=== PATIENT | male | born 1950 | race Caucasian/White ===

== ENCOUNTER → 2017-12-07 08:46 | Outpatient (CLI) | payer MEDICARE, OTHER, SELFPAY ==
[2017-12-07 10:05] LABS: AST(SGOT) 12 U/L (15-37); Alanine Aminotransfer ALT/SGPT 21 U/L (16-61); Albumin, Serum 3.9 g/dL (3.2-5.0); Alkaline Phosphatase 62 U/L (45-117); Bilirubin, Direct 0.19 mg/dL (0.00-0.30); Cholesterol 162 mg/dL (200); Globulin 3.2 g/dL (2.2-4.2); High Density Lipoprotein 39 mg/dL; Protein, Total 7.1 g/dL (6.4-8.2); Triglycerides 92 mg/dL; Very Low Density Lipoprotein 18 mg/dL (5-40)
[2017-12-07 10:07] LABS: Hemoglobin A1c 5.8 % (4.2-6.3)
== END ==
PROVIDERS: Family Provider Family Medicine; PCP Family Medicine; Visit Provider Nurse Practitioner Family
DX: E78.5 Hyperlipidemia, unspecified (principal); Z79.899 Other long term (current) drug therapy
CPT/HCPCS: 36415; 80061; 80076; 83036

== ENCOUNTER → 2018-01-19 09:29 | Outpatient (CLI) | payer MEDICARE, OTHER, SELFPAY ==
--- NOTE | 2018-01-19 09:32 | CT_ITS ---
STUDY: CT ABDOMEN AND PELVIS WITH AND WITHOUT CONTRAST REASON FOR EXAM: Male, 67 years old. Renal cysts. Left upper quadrant pain. Hematuria. RADIATION DOSAGE (If Supplied By Facility): CTDIvol = ( 26.33 ) mGy, DLP = ( 3586.39 ) mGycm TECHNIQUE: Transaxial images were obtained from the dome of the diaphragm to the symphysis pubis with oral contrast. 100mL ml of Isovue 300 contrast was administered. Sagittal and coronal images were reconstructed. Individualized dose optimization techniques were used for this CT. COMPARISON: None. FINDINGS: The visualized lung bases are unremarkable. The visualized portions of the heart are within normal limits. Normal liver. There is non-visualization of the gallbladder, which may be secondary to either contraction or a prior cholecystectomy. Normal spleen. Normal pancreas. Normal bilateral adrenal glands. Both kidneys show symmetric contrast-enhancement. Right kidney is simple cysts measuring as much as 8 cm. There is a 7 mm nonobstructing stone in the right upper pole. There is a 1 cm nonobstructing stone in the left lower pole. No hydronephrosis on either side. Normal collecting systems and ureters. Normal visualized stomach. Normal small intestine. Normal colon. The appendix is visualized and appears normal. There is diffuse atherosclerotic calcification of the abdominal aorta with elongation and tortuosity, but without a demonstrated aneurysm. There is ectasia of both iliac arteries. Normal inferior vena cava. Normal retroperitoneum. Normal urinary bladder. There is enlargement of the prostate gland. There is a small umbilical hernia containing fat. There are diffuse degenerative changes of the visualized lumbar spine. CT/CT Abd/Pelvis W/WO Contrast IMPRESSION: No definite acute abnormality. Bilateral nonobstructing renal stones. Prostate enlargement. Electronically Signed: Sudhakar Coleman MD at 14:14 EDT , Service support ,
[2018-01-19 09:56] LABS: CREATININE FINGERSTICK 1.1 mg/dL (0.70-1.30); EGFR FINGERSTICK > 60.0000 mL/min (>60)
== END ==
PROVIDERS: Family Provider Family Medicine; PCP Family Medicine; Visit Provider Nurse Practitioner Adult Health
DX: N28.1 Cyst of kidney, acquired (principal); N20.0 Calculus of kidney; N40.0 Benign prostatic hyperplasia without lower urinary tract symptoms; R10.12 Left upper quadrant pain
CPT/HCPCS: 74178; Q9967

== ENCOUNTER 2018-07-12 13:48 | Inpatient (IN) | payer MEDICARE, OTHER, SELFPAY ==
[2018-07-12] VITALS (7 sets, daily range): BP systolic 142–165; BP diastolic 79–88; PULSE 66–73; RESP 16–18; TEMP 36.6–38.2; O2SAT 93–98; BMI 71.4; BMI 30.1; BMI 30.7
--- NOTE | 2018-07-12 14:07 | CT_ITS ---
STUDY: CT ABDOMEN AND PELVIS WITHOUT CONTRAST REASON FOR EXAM: Male, 68 years old. Left flank pain, hematuria. History of kidney stones. Surgical history of cholecystectomy and CABG x4. RADIATION DOSAGE (If Supplied By Facility): CTDIvol = ( 14.36 ) mGy, DLP = ( 762.05 ) mGycm TECHNIQUE: Transaxial images were obtained from the dome of the diaphragm to the symphysis pubis without oral contrast, and without intravenous contrast. Sagittal and coronal images were reconstructed. Individualized dose optimization techniques were used for this CT. COMPARISON: CT abdomen and pelvis January 19, 2018. FINDINGS: Minor curvilinear subsegmental atelectasis noted in the posterior left lung base. The heart size is within normal limits. There are atherosclerotic calcifications of the coronary arteries and visualized distal descending thoracic aorta. Prior median sternotomy and CABG. There is decreased attenuation of the liver consistent with steatosis. The portal vein diameter is 15 mm. Normal gallbladder and extrahepatic biliary system. Normal spleen. Normal pancreas. Normal bilateral adrenal glands. There is a stable exophytic 3.55 x 4.4 x 3.35 cm cortical cyst at the upper pole of the right kidney. Exophytic 5.05 x 3.7 x 3.8 cm cortical cyst at the lower pole has decreased in size. Nonobstructing 7 mm stone again noted in the upper pole of the right kidney. There is a 5.5 mm nonobstructing stone in the left lower pole. 11 x 5 x 7.5 mm stone seen previously in the left lower pole is now in the proximal left ureter, causing mild to moderate hydroureteronephrosis and mild left perinephric congestive stranding. Normal visualized stomach. Normal small intestine. Normal colon. The appendix is visualized and appears normal. 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 There is 2.0 x 2.1 cm fusiform dilatation of the right common iliac artery and 1.9 x 1.75 cm fusiform ectasia on the left Normal inferior vena cava. Normal retroperitoneum. Normal urinary bladder. There is interval mild enlargement of the prostate gland. There are prostatic calcifications. There is a stable small umbilical hernia containing fat. There are diffuse degenerative changes of the visualized spine. Stable arthrodeses with anterior osseous bridging of the bilateral sacroiliac joints. There is benign subcentimeter cystic change in the superolateral head of the left femur. CT/Abdomen/Pelvis without Cont IMPRESSION: 1. Bilateral nephrolithiasis again noted. 11 mm stone previously seen in the lower pole left kidney is now in the proximal left ureter, causing mild to moderate hydroureteronephrosis. 2. Stable upper pole cortical cyst of the right kidney. A 5 cm lower pole cyst has decreased in size since January 2018. 3. 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 Prior median sternotomy and CABG. 4. Hepatic steatosis. 5. The bowel is unremarkable without signs of obstruction. The appendix is normal. 6. Coarse ossifications again seen in the central aspect of the mildly enlarged prostate gland.. 7. Stable small, fat-containing umbilical hernia. 8. Stable degenerative changes of the spine and sacroiliac joints. Electronically Signed: Konstantin Stark MD at 16:58 EST , Service support ,
--- NOTE | 2018-07-12 14:31 | ED.VISSUMM ---
- ER Visit Summary Date of Service: 07/12/18 Chief Complaint: Abdominal pain History of Present Illness: The patient is a 68 M presents to the emergency department with midepigastric abdominal pain into his left upper quadrant and left back. The patient states that he was recently in [place]. He states that he was drinking alcohol and overeating. He states on the second day, he had a sharp pain in his mid epigastric area that radiated to his back. He states he had some loose watery diarrhea and then since then has felt constipated. He states has felt like has been bloated. He states if he takes some ibuprofen, it seems to control the pain but then the pain will come back. He did have something similar like this a few months ago. He was evaluated by urology. He has CT scan which showed kidney stone within the kidney, but nothing within the tract. He has had prior CABG and cholecystectomy. He denies any history of diverticulitis. Physical Examination: Vital signs reviewed General: Well-nourished, well-developed Head: Normocephalic, atraumatic Eyes: Pupils equal and reactive, extraocular muscles intact Neck, supple, no lymphadenopathy Heart: Regular rate and rhythm Respiratory: No distress, clear bilaterally Abdomen: Soft, tender in the left upper quadrant without rebound or guarding, nondistended, no peritoneal signs Back: Nontender Extremities: Nontender, no edema, no cords Skin: Normal color no rash Neuro: Alert and oriented, no focal or lateralizing deficits Test Results: [] Emergency Department Course and Treatment: The patient has pain in his left upper quadrant and his left back. Was concern for diverticulitis versus obstructing kidney stone. IV was established. He declined analgesics. Patient was given IV fluids. He does have evidence of acute kidney injury with a creatinine of 2. Patient will undergo CT the abdomen pelvis. Disposition will be pending completion of this. He will be signed out to the oncoming physician. Treatment Plan: [] Disposition: Pending Impression: Acute left flank pain 2. Acute kidney injury This note was generated with [employer] dictation software. It may contain incorrect words, spelling, and punctuation that were not noted in review of the chart prior to signing ED Disposition - Plan for ED Patient: Chief Complaint: Flank Pain Referrals: Xavier Fernandez MD [Primary Care Provider] -
[2018-07-12] MEDS: 0.9% Normal Saline 1,000 ML 1000 ML IV (14:38)
[2018-07-12 14:43] LABS: Absolute Lymphocyte Count 1.36 X10^3/ul (0.83-4.51); Absolute Neutrophil Count 6.6 X10^3/uL (2.0-7.7); Basophil# 0.01 X10^3/uL; Basophil% 0.1 % (0-1); Eosinophil# 0.13 X10^3/uL; Eosinophils% 1.4 % (0-5); Hematocrit 41.6 % (40-54); Lymphocyte # 1.36 X10^3/ul (4.0); Lymphocyte % 14.9 % (19-41); Mean Corp Hgb Conc 33.7 g/gl (32-36); Mean Corpuscular Hgb 30.2 pg (27.0-32.0); Mean Corpuscular Volume 89.7 fL (80-94); Mean Platelet Vol. 11.2 fl (6.2-12.0); Monocyte# 0.95 X10^3/uL; Monocyte% 10.4 % (0-10); Neutrophil # 6.64 X10^3/uL (2.7-7.7); Platelet Count 142 K/mm3 (150-450); RBC Distribution Width CV 13.2 % (11.6-14.6); RBC Distribution Width SD 42.7 fl (35.1-43.9); Red Blood Count 4.64 M/mm3 (4.6-6.2); White Blood Count 9.1 K/mm3 (4.4-11.0)
[2018-07-12 14:44] LABS: POSITIVE COUNT NO; POSITIVE DIFFERENTIAL NO; POSITIVE MORPHOLOGY NO
[2018-07-12 14:54] LABS: AST(SGOT) 19 U/L (15-37); Alanine Aminotransfer ALT/SGPT 27 U/L (16-61); Albumin, Serum 3.5 g/dL (3.2-5.0); Alkaline Phosphatase 67 U/L (45-117); Anion Gap 7 (5-15); BUN 26 mg/dL (7-18); BUN/Creat Ratio 12.7 RATIO (10-20); Calcium,Total 8.4 mg/dL (8.5-10.1); Chloride 108 mmol/L (98-107); Creatinine, Serum 2.05 mg/dL (0.70-1.30); EST Glomerular Filtration Rate 35 mL/min (>60); Est Glom Filt Rate - Afr Amer 42 mL/min (>60); Estimated Creatinine Clearance 34.49 ml/min; Globulin 3.5 g/dL (2.2-4.2); Glucose 112 mg/dL (74-106); Lipase 118 U/L (73-393); Sodium Level 142 mmol/L (136-145)
[2018-07-12] MEDS: Ondansetron 4 MG/2 ML Vial IV (15:54)
[2018-07-12] MEDS: Morphine 4 MG/ML Syringe IV (15:54)
[2018-07-12 16:07] LABS: Bacteria 0 SEEN /hpf (None Seen); Mucous, Urine 0 SEEN /hpf (<or=2+); Squamous Epithelial Cells - UA 0 SEEN /hpf (0-5)
[2018-07-12 16:08] LABS: Color, Urine Yellow (Yellow); Glucose, Dipstick Normal (Normal); Ketone-Dipstick 5 mg/dl (Negative); Leukocyte Esterase-Dipstick 100 /ul (Negative); Nitrite-Dipstick Negative (Negative); Occult Blood-Urine 250 /ul (Negative); Protein-Dipstick 15 mg/dl (Negative); Specific Gravity, Urine 1.015 (1.002-1.030); Urine Bilirubin Dipstick Negative (Negative); Urine Clarity Clear (Clear); Urine Urobilinogen Normal (Normal)
[2018-07-12 16:13] LABS: Red Blood Cells-Urine 25-50 SEEN /hpf (0-5); White Blood Cells 0-5 SEEN /hpf (0-5)
[2018-07-12] MEDS: 0.9% Normal Saline 1,000 ML 75 ML IV (19:00)
[2018-07-12] MEDS: 0.9% NaCl Peripheral Flush Adult/Peds IV (20:22)
[2018-07-12] MEDS: Morphine 2 MG/ML Syringe IV (20:22)
--- NOTE | 2018-07-12 21:33 | HP.PCM_ITS ---
History of Present Illness Date of Admission: 07/12/18 Chief Complaint: left flank pain The patient is a 68 year old male presents to the hospital with a large 11m stone in the left renal pelvis, proximal ureter patient admitted for pain control, plan for surgery tomorrow Past Medical History Past Medical History (Chronic Problems): Chronic Problems (Last Updated 07/19/17 @ 19:33 by Yoana Ayala) Encounter for long-term (current) use of other medications (Chronic) S/P CABG x 4 (Chronic) Hyperlipidemia (Chronic) Hypertension (Chronic) Obstructive sleep apnea (Chronic) History of transient ischemic attack (Chronic) Bilateral carotid artery stenosis (Chronic) Atherosclerotic heart disease of [place] coronary artery without angina pectoris (Chronic) S/P CABG in 2012 with ALMEIDA to LAD, SVG to diagonal vessel, sequential SVG to RCA and posterior descending artery; Medical History: Medical History (Last Reviewed 07/12/18 @ 21:32 by Alvaro Langley MD) Encounter for long-term (current) use of other medications (Chronic) Z79.899 Hyperlipidemia (Chronic) E78.5 Hypertension (Chronic) I10 Obstructive sleep apnea (Chronic) G47.33 History of transient ischemic attack (Chronic) Z86.73 Bilateral carotid artery stenosis (Chronic) I65.23 Atherosclerotic heart disease of [place] coronary artery without angina pectoris (Chronic) I25.10 S/P CABG in 2012 with ALMEIDA to LAD, SVG to diagonal vessel, sequential SVG to RCA and posterior descending artery; Allergies lisinopril Adverse Reaction (Mild, Verified 07/12/18 13:49) cough Home Medications: Ambulatory Orders Medication Instructions Recorded amlodipine 5 mg tablet 5 mg PO QDAY 07/19/17 aspirin 81 mg tablet,delayed 81 mg PO QDAY 07/19/17 release losartan 100 mg tablet 50 mg PO BID 07/19/17 metoprolol tartrate 25 mg tablet 12.5 mg PO BID 07/19/17 Surgical History: Surgical History (Last Reviewed 07/12/18 @ 21:32 by Alvaro Langley MD) laser surgery eye (Resolved) torn retina left Esophageal dilatation (Resolved) K22.8 Hx of cholecystectomy (Resolved) Z90.49 S/P CABG x 4 (Chronic) Z95.1 Psychiatric History: No pertinent psych hx Lives: Spouse/ Significant Other Smoking Status: Never smoker Alcohol: None Drugs: None Review of Systems Constitutional: Denies: Chills, Fever, Weight Change HEENT: Denies: Head Aches, Sinus Congestion, Sinus Drainage Cardiovascular: Denies: Chest Pain, Palpitations Respiratory: Denies: Cough, Shortness of breath at rest, Sputum production Gastrointestinal: Denies: Abdominal Pain, Nausea, Vomiting Genitourinary: Reports: Hematuria, - - kidney stones. Denies: Dysuria Musculoskeletal: Denies: Joint Pain, Joint Tenderness Skin: Denies: Rash, Wounds Neurological: Denies: Numbness, Tingling, Focal weakness Psychiatric: Denies: Anxiety, Depression, Homicidal Ideations, Suicidal Ideations Hematologic/ Lymphatic: Denies: Easy Bruising, Easy Bleeding VTE Information - Inpt Only VTE Present on Admission: No - Physical Exam General: Alert, Oriented x3, Cooperative HEENT: Atraumatic, PERRLA, EOMI, Normocephalic Neck: Supple, No JVD, Negative Carotid Bruits Lungs: Clear to auscultation, Normal air movement Cardiovascular: Regular rate, No murmurs Abdomen: Bowel Sounds Present, Soft, Non Tender Extremities: No edema, Capillary Refill Less than 3 Seconds Skin: No rashes, No breakdown Musculoskeletal: No Tenderness to Palpation of Joints or Extremities Neurological: Cranial nerves II-XII grossly intact Psych/Mental Status: Normal Affect, Appropriate Vital Signs Temp Pulse Resp BP Pulse Ox 99.9 F H 70 18 152/83 H 96 07/12/18 18:21 07/12/18 20:15 07/12/18 20:15 07/12/18 18:21 07/12/18 20:15 Oxygen Delivery Method Room Air Weight: 97.2 kg Body Mass Index (BMI) 30.7 Laboratory Tests Past 24 Hrs 07/12/18 07/12/18 07/12/18 14:34 14:34 16:05 WBC 9.1 RBC 4.64 Hgb 14.0 Hct 41.6 MCV 89.7 MCH 30.2 MCHC 33.7 RDW 13.2 RDW Differential 42.7 Plt Count 142 L MPV 11.2 Immature Gran % (Auto) 0.200 Neut % (Auto) 73.0 H Lymph % (Auto) 14.9 L [place] % (Auto) 10.4 H Eos % (Auto) 1.4 Baso % (Auto) 0.1 Absolute Neuts (auto) 6.6 Absolute Lymphs (auto) 1.36 Total Counted Not Reportable Sodium 142 Potassium 4.0 Chloride 108 H Carbon Dioxide 27.0 Anion Gap 7 BUN 26 H Creatinine 2.05 H Estim Creat Clear Calc 34.49 Est GFR (MDRD) Af Amer 42 L Est GFR (MDRD) Non-Af 35 L BUN/Creatinine Ratio 12.7 Glucose 112 H Calcium 8.4 L Total Bilirubin 1.30 H AST 19 ALT 27 Alkaline Phosphatase 67 Total Protein 7.0 Albumin 3.5 Globulin 3.5 Albumin/Globulin Ratio 1.0 Lipase 118 Urine Color Yellow Urine Clarity Clear Urine pH 6.0 Ur Specific [place] 1.015 Urine Protein 15 H Urine Glucose (UA) Normal Urine Ketones 5 H Urine Occult Blood 250 H Urine Nitrite Negative Urine Bilirubin Negative Urine Urobilinogen Normal Ur Leukocyte Esterase 100 H Urine RBC 25-50 SEEN Urine WBC 0-5 SEEN Ur Squamous Epith Cells 0 SEEN Urine Bacteria 0 SEEN Urine Mucus 0 SEEN Assessment/Plan All Active Problems (Last Updated 11/29/17 @ 08:57 by Laury Lozano) laser surgery eye (Resolved) Esophageal dilatation (Resolved) Hx of cholecystectomy (Resolved) admit for kidney stone npo for surgery plan for cysto, left stent possible ureteroscopy laser stone.
[2018-07-12] MEDS: Metoprolol Tartrate 25 MG Tablet 12.5 MG PO (22:15)
[2018-07-12] MEDS: Losartan Potassium 50 MG Tablet PO (22:16)
[2018-07-12] MEDS: Acetaminophen 500 MG Tablet PO (22:16)
[2018-07-13] VITALS (13 sets, daily range): BP systolic 123–157; BP diastolic 69–86; PULSE 59–82; RESP 14–16; TEMP 37–37.6; O2SAT 91–97
[2018-07-13] MEDS: Morphine 2 MG/ML Syringe IV ×5 (00:09→16:42)
[2018-07-13] MEDS: 0.9% NaCl Peripheral Flush Adult/Peds IV (00:09)
[2018-07-13] MEDS: Acetaminophen 500 MG Tablet PO (03:18)
[2018-07-13] MEDS: 0.9% Normal Saline 1,000 ML 75 ML IV ×3 (05:57→21:23)
--- NOTE | 2018-07-13 06:00 | EKG12_ITS ---
Test Reason : PRE-OP Blood Pressure : / mmHG Vent. Rate : 059 BPM Atrial Rate : 059 BPM P-R Int : 176 ms QRS Dur : 088 ms QT Int : 448 ms P-R-T Axes : 016 -08 032 degrees QTc Int : 443 ms Sinus bradycardia Otherwise normal ECG When compared with ECG of 06-MAR-2013 09:09, Questionable change in QRS axis T wave inversion no longer evident in Anterior leads Confirmed by JAMIE CHOPRA, NAHEED ([id number]), assignment editor GINA HOLLY ([id number]) on 07/16/2018 2:55:16 PM Referred By: ADRIENNE Confirmed By:NAHEED AYALA MD
[2018-07-13] MEDS: amLODIPine 5 MG Tablet PO (09:50)
[2018-07-13] MEDS: Metoprolol Tartrate 25 MG Tablet 12.5 MG PO ×2 (09:52→21:21)
--- NOTE | 2018-07-13 17:42 | PCM.PN.BLA ---
Progress Note 68-year-old male presents with a obstructing kidney stone is running a low-grade fever plan to just place a stent today and could keep him on antibiotics if clinically stable we will send him home tomorrow with antibiotics.
--- NOTE | 2018-07-13 18:03 | PCM.OPRPT ---
Report of Operation Date of Procedure: 07/13/18 Pre-Operative Diagnosis: Fevers and chills, left obstructing kidney stone Post-Operative Diagnosis: Same Surgery/Procedure Performed:: Cystoscopy and left stent placement Description of Surgical Findings:: 68-year-old male taken back to the operating room at the smooth induction of general anesthesia he was placed supine on the table I then went into the urethra with a 21 Portuguese rigid cystourethroscope, he been prepped and draped in usual sterile fashion, cannulated the left ureteral orifice advanced a wire up into the kidney could see a stone in the medial ureter under x-ray I then advanced a stent 6 Portuguese by 26 cm stent once stent was in good position pulled on the wire and the stent drained urine we then sent the urine off for culture. At this point plan to admit the patient in the hospital for this fevers and chills an obstructing stone T with antibiotics. Plan to treat him in interval fashion with shockwave lithotripsy. Type of Anesthesia:: Local MAC Drains: stent left side - Admit VTE Documentation VTE Present on Admission: No VTE Mechan Device Prophylaxis: SCD's
[2018-07-13] MEDS: Losartan Potassium 50 MG Tablet PO (21:21)
--- NOTE | 2018-07-13 21:40 | NURSING ---
pt ambulating in hallway.
[2018-07-14 02:17] VITALS: BP 150/82; PULSE 81; RESP 18; TEMP 37; O2SAT 95
--- NOTE | 2018-07-14 02:20 | NURSING ---
spo2 85% on RA while sleeping. 2L NC applied sp02 95%.
[2018-07-14] MEDS: Acetaminophen 500 MG Tablet PO (04:15)
[2018-07-14] MEDS: Losartan Potassium 50 MG Tablet PO (07:53)
[2018-07-14 07:54] VITALS: PULSE 61
[2018-07-14] MEDS: Metoprolol Tartrate 25 MG Tablet 12.5 MG PO (07:54)
[2018-07-14] MEDS: amLODIPine 5 MG Tablet PO (07:54)
[2018-07-14 08:00] VITALS: PULSE 80
--- NOTE | 2018-07-14 08:00 | RAD_ITS ---
STUDY: X-RAY - ABDOMEN/PELVIS REASON FOR EXAM: Male, 68 years old. Bilateral kidney stones with stent TECHNIQUE: Two AP supine views of the abdomen and pelvis. COMPARISON: None. FINDINGS: Normal visualized lung bases. There is a moderate amount of colonic fecal material. There is no demonstrated free abdominal air. Stone seen in both renal shadow. On the right, measuring 8 mm and on the left, there is a stone that appears to be in the region of the ureteral stent measuring 8.8 mm. Left ureteral stent is noted. Normal soft tissue structures. There are diffuse degenerative changes of the visualized lumbar spine. RAD/Abdomen Single View IMPRESSION: Bilateral nephrolithiasis. Left ureteral stent. There appears to be a stone in the region of the left mid ureter. Electronically Signed: Clay Lawler DO at 8:32 EST Tel , Service support ,
[2018-07-14 09:00] VITALS: BP 149/77; PULSE 74; RESP 18; TEMP 36.9; O2SAT 98
[2018-07-14] MEDS: Ciprofloxacin 400 MG/200 ML BAG 200 MG IV (09:54)
[2018-07-14 10:35] VITALS: O2SAT 98
--- NOTE | 2018-07-14 12:54 | DCINST_ITS ---
Discharge Diet: Light diet - advance as tolerated Discharge Activity: Return to Normal Activity Allergies/Adverse Reactions: Allergies lisinopril Adverse Reaction (Mild, Verified 07/12/18 13:49) cough Medications to take at Discharge amlodipine 5 mg tablet 5 mg PO QDAY 07/19/17 aspirin 81 mg tablet,delayed release 81 mg PO QDAY 07/19/17 losartan 100 mg tablet 50 mg PO QHS 07/19/17 metoprolol tartrate 25 mg tablet 12.5 mg PO BID 07/19/17 Primary Care Physician: Xavier Fernandez MD [Primary Care Provider] - Test Results: Test results from this visit will be discussed in further detail at your follow- up appointment, if applicable. Please Follow Up With: Alvaro Langley MD When: call office to get set up for shockwave lithotripsy
[2018-07-14 13:15] VITALS: BP 138/70; PULSE 64; RESP 18; TEMP 37.2; O2SAT 99
== END 2018-07-14 13:05 | disposition home or self-care (01) | DRG 660 ==
LOC: ED 15:11 → MS3 18:16
PROVIDERS: Admitting Provider Urology; Emergency Provider Emergency Medicine; Family Provider Family Medicine; PCP Family Medicine; Visit Provider Urology
PROC: 0TJ98ZZ Inspection of Ureter, Via Natural or Artificial Opening Endoscopic (ICD-10-PCS; CPT 52352; principal; 2018-07-13 09:20)
DX: N20.0 Calculus of kidney (principal); N17.9 Acute kidney failure, unspecified; I10 Essential (primary) hypertension; G47.33 Obstructive sleep apnea (adult) (pediatric); I25.10 Atherosclerotic heart disease of native coronary artery without angina pectoris; E78.5 Hyperlipidemia, unspecified; Z90.49 Acquired absence of other specified parts of digestive tract; Z86.73 Personal history of transient ischemic attack (TIA), and cerebral infarction without residual deficits; Z95.1 Presence of aortocoronary bypass graft; Z79.899 Other long term (current) drug therapy
CPT/HCPCS: 74018; 74176; 76000; 80053; 81001; 83690; 85025; 87086; 93005; 99282; J7030; A4216; C1769; C2617; J0744; J2405

== ENCOUNTER 2018-07-27 11:18 | Day surgery (SDC) | payer MEDICARE, OTHER, SELFPAY ==
[2018-07-12 18:19] VITALS: BMI 30.7
[2018-07-27 11:47] VITALS: BP 138/76; PULSE 51; RESP 16; TEMP 37; O2SAT 99; BMI 30.5
[2018-07-27] MEDS: Cefazolin 2 GM in 0.9% Normal Saline 100 ML IV (15:26)
--- NOTE | 2018-07-27 17:32 | DCINST_ITS ---
Discharge Diet: Light diet - advance as tolerated Discharge Activity: Return to Normal Activity Call your doctor if your incision/area has: Continuous Slow Oozing, Sudden Increased Bleeding, Increased Pain/ Swelling, Increased Redness, Foul Smelling Discharge Call your doctor if you observe: Fever of 101 or Higher Suture Line Care: Avoid Pulling/Pushing, Avoid Pinching/Bending Allergies/Adverse Reactions: Allergies lisinopril Adverse Reaction (Mild, Verified 07/24/18 10:10) cough Medications to take at Discharge amlodipine 5 mg tablet 5 mg PO QDAY 07/19/17 aspirin 81 mg tablet,delayed release 81 mg PO QDAY 07/19/17 losartan 100 mg tablet 50 mg PO QHS 07/19/17 metoprolol tartrate 25 mg tablet 12.5 mg PO BID 07/19/17 Ciprofloxacin [Cipro] 500 mg PO BID #10 tablet 07/14/18 Ibuprofen 600 mg PO 4X/DAY PRN PRN #20 tablet 07/14/18 Ciprofloxacin [Cipro] 500 mg PO BID #6 tab 07/27/18 Docusate Sodium [Colace] 100 mg PO BID #14 cap 07/27/18 Oxycodone HCl/Acetaminophen [Percocet 5/325] 1 tab PO Q4H PRN PRN 5 Days #14 tab 07/27/18 Primary Care Physician: Xavier Fernandez MD [Primary Care Provider] - Test Results: Test results from this visit will be discussed in further detail at your follow- up appointment, if applicable. Please Follow Up With: Alvaro Langley MD When: in 2 weeks, please call to make an appointment.
--- NOTE | 2018-07-27 17:33 | PCM.OPRPT ---
Report of Operation Date of Procedure: 07/27/18 Pre-Operative Diagnosis: Left ureteral calculi, left renal calculi, right renal calculi Post-Operative Diagnosis: Same Surgery/Procedure Performed:: Cystoscopy removal of left stent, left shockwave lithotripsy the stones in the ureter and the kidney, right shockwave lithotripsy the stones in the kidney. Description of Surgical Findings:: 68-year-old male with a large obstructing stone in the mid ureter on the left side today were to do shockwave lithotripsy to treat the obstructing stones and also the stones in both kidneys. He was taken back to the operating room at the smooth induction of general anesthesia we first found the stone in the mid left ureter the stone was treated with 4000 shockwaves of lithotripsy. The stone appeared to break up fairly well. We then went up to the kidney and treated one stone in the mid kidney and another stone in the lower pole kidney total of 2500 shockwaves given to the kidney. We then went to the right kidney and there is 2 fragments in the right kidney and the stone fragments were treated with a total of 3000 shockwaves at the end of the treatment cycle the right kidney had a broken up stones left kidney are broken up stones and the stone in the mid left ureter had broken up really well we prepped and draped the penis in sterile fashion went over the flexible cystoscope grabbed the existing stent and pulled it out of the patient and drain the bladder patient anesthetic was reversed taken back to PACU good condition and follow-up in about 10 days with an x-ray in the office. Type of Anesthesia:: General Drains: none - Admit VTE Documentation VTE Present on Admission: No VTE Mechan Device Prophylaxis: SCD's
[2018-07-27 17:39] VITALS: BP 138/76; BP 173/102; PULSE 75; RESP 16; TEMP 37.1; O2SAT 92
[2018-07-27] MEDS: Ketorolac 15 MG/ML Vial IV (17:49)
[2018-07-27 18:00] VITALS: BP 138/76; BP 148/57; PULSE 75; RESP 16; O2SAT 94
[2018-07-27 18:15] VITALS: BP 138/76; BP 156/92; PULSE 80; RESP 16; TEMP 37.2; O2SAT 92
[2018-07-27 18:50] VITALS: BP 138/76
== END 2018-07-27 19:04 | disposition home or self-care (01) ==
LOC: SDC 11:19 → AC 11:19
PROVIDERS: Family Provider Family Medicine; PCP Family Medicine; Referring Provider Urology; Visit Provider Urology
PROC: 0TP98DZ Removal of Intraluminal Device from Ureter, Via Natural or Artificial Opening Endoscopic (ICD-10-PCS; CPT 50590; principal; 2018-07-27 13:20)
DX: N20.2 Calculus of kidney with calculus of ureter (principal); N28.1 Cyst of kidney, acquired; R10.9 Unspecified abdominal pain; I25.10 Atherosclerotic heart disease of native coronary artery without angina pectoris; I10 Essential (primary) hypertension; G47.30 Sleep apnea, unspecified; Z95.1 Presence of aortocoronary bypass graft
CPT/HCPCS: 50590; J7120; J2405

== ENCOUNTER → 2018-08-06 09:33 | Outpatient (CLI) | payer MEDICARE, OTHER, SELFPAY ==
[2018-07-27 11:47] VITALS: BMI 30.5
--- NOTE | 2018-08-06 09:43 | RAD_ITS ---
STUDY: X-RAY - ABDOMEN/PELVIS REASON FOR EXAM: Male, 68 years old. History of bilateral kidney stones. Recent ESWL. TECHNIQUE: Two AP supine views of the abdomen and pelvis. COMPARISON: Comparison is made with prior study dated July 14, 2018. FINDINGS: Normal visualized lung bases. There is a moderate amount of colonic fecal material. The previously seen right intrarenal calculi are not seen at this time. The previously seen left double-J stent catheter has been removed. There is a residual 9.5 mm calculus in the lower pole calyx of the left kidney. The previously seen calculus overlying the transverse processes of the L3 vertebrae on the left side is not seen at this time. It is now seen in the left hemipelvis most likely in the distal left ureter at the level of the ureterovesical junction. Calcification of the infrarenal abdominal aorta. There are diffuse degenerative changes of the visualized lumbar spine. RAD/Abdomen Single View IMPRESSION: The previously seen calculus overlying the transverse processes of the L3 vertebrae on the left side appears to be in the left hemipelvis most likely at the left ureterovesical junction. Electronically Signed: Nabeel Ramirez MD at 13:00 EST Tel [phone], Service support ,
[2018-08-14 12:06] LABS: Ca Oxalate, Monohydrate 97 % (.)
== END ==
PROVIDERS: Family Provider Family Medicine; PCP Family Medicine; Referring Provider Urology; Visit Provider Urology
DX: N20.0 Calculus of kidney (principal); N39.0 Urinary tract infection, site not specified
CPT/HCPCS: 74018; 82360; 87086

== ENCOUNTER → 2018-11-30 09:10 | Outpatient (CLI) | payer MEDICARE, OTHER, SELFPAY ==
[2018-11-22 14:59] VITALS: BMI 31.2
--- NOTE | 2018-11-30 09:16 | RAD_ITS ---
STUDY: AIR-CONTRAST BARIUM ESOPHAGRAM REASON FOR EXAM: Male, 68 years old. Dysphagia, food sticking RADIATION DOSAGE (If Supplied By Facility): CTDIvol = ( ) mGy, DLP = ( ) mGycm. Individualized dose optimization techniques were used for this CT.? FLUOROSCOPY TIME (if supplied): (1:01) minutes/seconds, 5 fluoroscopic images obtained TECHNIQUE: Air-contrast COMPARISON: None. FINDINGS: Swallowing was initiated normally. No nasopharyngeal reflux or aspiration. No Zenker's diverticulum noted on the lateral view. Normal peristaltic activity noted in the proximal esophagus. However, there is evidence of tertiary contractions in the mid and distal esophagus. These tertiary contractions caused some intraesophageal reflux. No evidence of GE reflux or hiatal hernia. A 13 mm barium pill passed through the esophagus without difficulty. RAD/Esophagus Only IMPRESSION: Presbyesophagus with tertiary contractions causing intraesophageal reflux. No stricture, polyp, mass lesion or obstruction. Electronically Signed: Konstantin Garcia MD at 10:27 EDT , Service support ,
== END ==
PROVIDERS: Family Provider Family Medicine; PCP Family Medicine; Referring Provider Internal Medicine Gastroenterology; Visit Provider Internal Medicine Gastroenterology
DX: R13.10 Dysphagia, unspecified (principal)
CPT/HCPCS: 74220

== ENCOUNTER → 2020-02-13 11:32 | Outpatient (CLI) | payer MEDICARE, OTHER, SELFPAY ==
[2018-11-22 14:59] VITALS: BMI 31.2
--- NOTE | 2020-02-13 11:38 | RAD_ITS ---
STUDY: X-RAY - ABDOMEN/PELVIS REASON FOR EXAM: Male, 69 years old. LEFT SIDE FLANK PAIN -- H/O STONES TECHNIQUE: 2 frontal views of the abdomen COMPARISON: None. FINDINGS: Normal visualized lung bases. Median sternotomy wires are noted. There is an unremarkable bowel gas pattern. There is no demonstrated free abdominal air. Calcific densities are seen over the left lower pole kidney consistent with renal stones. No other calcific densities are identified. Normal soft tissue structures. There are diffuse degenerative changes of the visualized lumbar spine. RAD/Abdomen Single View IMPRESSION: Left lower pole renal stones. Electronically Signed: Ric Jones, at 17:28 EDT Tel , Service support ,
== END ==
PROVIDERS: PCP Family Medicine; Referring Provider Urology; Visit Provider Urology
DX: R10.9 Unspecified abdominal pain (principal); Z87.442 Personal history of urinary calculi
CPT/HCPCS: 74018

== ENCOUNTER 2020-02-21 11:50 | Day surgery (SDC) | payer MEDICARE, OTHER, SELFPAY ==
[2018-11-22 14:59] VITALS: BMI 31.2
[2020-02-21] VITALS (7 sets, daily range): BP systolic 175–192; BP diastolic 78–92; PULSE 57–74; RESP 15–16; TEMP 36.2–36.6; O2SAT 97–99; BMI 29.2
--- NOTE | 2020-02-21 11:54 | RAD_ITS ---
STUDY: X-RAY - ABDOMEN/PELVIS REASON FOR EXAM: Male, 69 years old. PRE OP TECHNIQUE: Single AP view of the abdomen / pelvis. COMPARISON: Comparison is made with prior study dated February 13, 2020. FINDINGS: There is a moderate amount of colonic fecal material. The previously seen 5.4 mm calculus in the mid left ureter is not seen in the region of the left ureterovesical junction. Normal soft tissue structures. There are diffuse degenerative changes of the visualized lumbar spine. RAD/Abdomen Single View IMPRESSION: 5.4 mm calculus in the region of the left ureterovesical junction. Electronically Signed: Nabeel Ramirez, at 15:17 EDT , Service support ,
[2020-02-21] MEDS: Lactated Ringers 1,000 ML 100 ML IV (12:41)
--- NOTE | 2020-02-21 13:59 | HP.PCM_ITS ---
History of Present Illness Date of Admission: 02/21/20 Chief Complaint: Left ureteral calculi The patient is a 69 year old male who presented to the hospital for treatment of a stone in the distal left ureter we plan to proceed with a cystoscopy left stent placement and left extracorporeal shockwave lithotripsy. He understands is possible he may need more than one procedure he also understands will need a stent to alleviate the obstruction. Past Medical History Past Medical History (Chronic Problems): Chronic Problems (Last Reviewed 11/22/18 @ 15:[address] Ej Gordillo MD) Occlusion of right carotid artery (Chronic) Essential (primary) hypertension (Chronic) Hyperlipidemia (Chronic) Atherosclerotic heart disease of [place] coronary artery without angina pectoris (Chronic) CABG x 4 ALMEIDA-LAD, SVG-D1, sequential SVG-RCA and PDA 01/25/2013 Medical History: Medical History (Last Reviewed 11/22/18 @ 15:[address] Ej Gordillo MD) Transient ischemic attack (Resolved) G45.9 Occlusion of right carotid artery (Chronic) I65.21 Essential (primary) hypertension (Chronic) I10 Hyperlipidemia (Chronic) E78.5 Atherosclerotic heart disease of [place] coronary artery without angina pectoris (Chronic) I25.10 CABG x 4 ALMEIDA-LAD, SVG-D1, sequential SVG-RCA and PDA 01/25/2013 Esophageal stricture K22.2 Obstructive sleep apnea G47.33 Renal calculus, bilateral N20.0 Retinal detachment H33.20 left Allergies lisinopril Adverse Reaction (Mild, Verified 02/21/20 11:59) cough Home Medications: Ambulatory Orders Medication Instructions Recorded aspirin 81 mg tablet,delayed 81 mg PO QDAY 07/19/17 release amlodipine 10 mg tablet 10 mg PO QDAY #90 tab 11/22/18 losartan 50 mg tablet 50 mg PO DAILY #90 tab 11/22/18 metoprolol tartrate 25 mg tablet 12.5 mg PO BID #90 tab 11/22/18 Surgical History: Surgical History (Last Reviewed 11/22/18 @ 15:[address] Ej Gordillo MD) H/O coronary artery bypass surgery (Resolved) Onset Date: 01/25/13 Z95.1 CABG x 4 ALMEIDA-LAD, SVG-D1, sequential SVG-RCA and PDA 01/25/2013 Esophageal dilatation K22.8 History of eye surgery Z98.890 History of lithotripsy Onset Date: 07/2018 Z98.890 Hx of cholecystectomy Z90.49 Surgical History: no surgical history Psychiatric History: No pertinent psych hx Smoking Status: Never smoker Tobacco Use: Non-smoker Review of Systems Constitutional: Denies: Chills, Fever, Weight Change HEENT: Denies: Head Aches, Sinus Congestion, Sinus Drainage Cardiovascular: Denies: Chest Pain, Palpitations Respiratory: Denies: Cough, Shortness of breath at rest, Sputum production Gastrointestinal: Denies: Abdominal Pain, Nausea, Vomiting Genitourinary: Denies: Dysuria Musculoskeletal: Denies: Joint Pain, Joint Tenderness Skin: Denies: Rash, Wounds Neurological: Denies: Numbness, Tingling, Focal weakness Psychiatric: Denies: Anxiety, Depression, Homicidal Ideations, Suicidal Ideations Hematologic/ Lymphatic: Denies: Easy Bruising, Easy Bleeding VTE Information - Inpt Only VTE Present on Admission: No VTE Mechan Device Prophylaxis: SCD's - Physical Exam Vitals/I&O's: Vital Signs Temp Pulse Resp BP Pulse Ox 97.9 F 66 15 175/87 H 99 02/21/20 12:31 02/21/20 12:31 02/21/20 12:31 02/21/20 12:31 02/21/20 12:31 Oxygen Delivery Method Room Air Weight: 89.811 kg Body Mass Index (BMI) 29.2 General: Alert, Oriented x3, Cooperative HEENT: Atraumatic, PERRLA, EOMI, Normocephalic Neck: Supple, No JVD, Negative Carotid Bruits Lungs: Clear to auscultation, Normal air movement Cardiovascular: Regular rate, No murmurs Abdomen: Bowel Sounds Present, Soft, Non Tender Extremities: No edema, Capillary Refill Less than 3 Seconds Skin: No rashes, No breakdown Musculoskeletal: No Tenderness to Palpation of Joints or Extremities Neurological: Cranial nerves II-XII grossly intact Psych/Mental Status: Normal Affect, Appropriate Current Medications Cefazolin Sodium 2 gm/ Sodium (Chloride) 110 mls @ 150 mls/hr IV PREOP ONE Stop: 02/21/20 14:43 Lactated Ringer's () 1,000 mls @ 100 mls/hr IV .Q10H LINDA Last Admin: 02/21/20 12:41 Dose: 100 mls/hr Documented by: Assessment/Plan All Active Problems (Last Reviewed 11/22/18 @ 15:[address] Ej Gordillo MD) Transient ischemic attack (Resolved) H/O coronary artery bypass surgery (Resolved 01/25/13) Essential (primary) hypertension (Resolved) Plan to proceed with left stent placement and left ESWL.
--- NOTE | 2020-02-21 14:02 | DCINST_ITS ---
Discharge Diet: No Restrictions Discharge Activity: Return to Normal Activity, May Not Drive - for 2 days. Instructions: Shock Wave Lithotripsy Allergies/Adverse Reactions: Allergies lisinopril Adverse Reaction (Mild, Verified 02/21/20 11:59) cough Medications to take at Discharge aspirin 81 mg tablet,delayed release 81 mg PO QDAY 07/19/17 amlodipine 10 mg tablet 10 mg PO QDAY #90 tab 11/22/18 losartan 50 mg tablet 50 mg PO DAILY #90 tab 11/22/18 metoprolol tartrate 25 mg tablet 12.5 mg PO BID #90 tab 11/22/18 Primary Care Physician: Xavier Fernandez MD [Primary Care Provider] - Test Results: Test results from this visit will be discussed in further detail at your follow- up appointment, if applicable. Please Follow Up With: Alvaro Langley MD When: please call to make an appointment.
[2020-02-21] MEDS: Cefazolin 2 GM in 0.9% Normal Saline 100 ML IV (14:04)
[2020-02-21] MEDS: Lubricating Jelly 60 GM Tube 30 GM TOPICAL (14:21)
--- NOTE | 2020-02-21 14:44 | PCM.OPRPT ---
Report of Operation Date of Procedure: 02/21/20 Pre-Operative Diagnosis: Left ureteral calculi Post-Operative Diagnosis: Same Surgery/Procedure Performed:: Cystoscopy, balloon dilation of the left ureter, ureteroscopy and laser lithotripsy of stone and stent placement Description of Surgical Findings:: 69-year-old male with a large stone in the distal left ureter presents to the operating room for treatment of obstructing stone, is taken back to the operating room at the smooth induction of anesthesia he underwent dorsolithotomy positioning. The penis and testicles are prepped and draped in usual sterile fashion, went into the bladder with a 21 [place] rigid cystourethroscope, once inside the bladder identified the left ureteral orifice used a wire advanced up past the stone and then I balloon dilated the distal left ureter I left the wire in place over the wire went in with a flexible ureteroscope I was unable to get up to the stone I used the laser and I treated the stone with a 200 ?m laser fiber. Settings were 0.8 J and 6Hz the stone was lasered into little tiny pieces once I dusted the stone completely then I advanced a wire back up into the kidney over the wire place a stent left the string on the stent but cut it short to prevent early extraction drained the bladder remove the scope patient anesthetic was reversed is taken back to PACU in good condition and he will follow-up next week for cystoscopy stent removal. Type of Anesthesia:: General Drains: stent left side - Admit VTE Documentation VTE Present on Admission: No VTE Mechan Device Prophylaxis: SCD's
[2020-02-21] MEDS: Ketorolac 15 MG/ML Vial IV (14:57)
== END 2020-02-21 16:29 | disposition home or self-care (01) ==
LOC: SDC 11:51 → AC 11:53
PROVIDERS: Anesthesiology; PCP Family Medicine; Referring Provider Urology; Visit Provider Urology
PROC: (CPT 50590; principal; 2020-02-21 13:40)
DX: N20.1 Calculus of ureter (principal); I10 Essential (primary) hypertension; G47.33 Obstructive sleep apnea (adult) (pediatric); I25.10 Atherosclerotic heart disease of native coronary artery without angina pectoris; E78.5 Hyperlipidemia, unspecified; Z95.1 Presence of aortocoronary bypass graft; Z79.82 Long term (current) use of aspirin; Z86.73 Personal history of transient ischemic attack (TIA), and cerebral infarction without residual deficits; Z87.442 Personal history of urinary calculi; Z11.59 Encounter for screening for other viral diseases
CPT/HCPCS: 00918; 52356; 74018; 87635; G2023; J7120; C2617; J2405; U0003

== ENCOUNTER 2022-03-10 11:25 | Emergency (ER) | payer MEDICARE, OTHER, SELFPAY ==
[2022-03-10 11:26] VITALS: BP 174/84; PULSE 98; RESP 14; TEMP 36.2; O2SAT 98; BMI 31.2
--- NOTE | 2022-03-10 11:38 | ED.VIS.LOWEX ---
HPI History of Present Illness Chief Complaint: Lower Extremity Injury Informant: patient Narrative Narrative: 72-year-old male arriving to the emergency department chief complaint of knee injury. Patient states that 2 days ago he was walking on the driveway when his foot turned inward and he twisted his knee. He states is a little sore but as the next 24 hours went on he got progressively more sore. He states that its not painful just feels weak. But that he tells me that he has pain on the inside of the knee. Used to have pain on the outside of the knee but that got better. He has been taking Motrin. He states that walking down the hallway to the emergency department did not seem to bother him. [facility] Medical History (Updated 03/10/22 @ 11:[address] Nick Hill DO) Atherosclerotic heart disease of [place] coronary artery without angina pectoris Esophageal stricture Essential (primary) hypertension Hyperlipidemia Obstructive sleep apnea Occlusion of right carotid artery Renal calculus, bilateral Retinal detachment Transient ischemic attack Home Medications aspirin 81 mg tablet,delayed release (Adult Aspirin Regimen) 81 mg PO QDAY 07/19/17 [History Last Taken 07/12/18 08:00] losartan 50 mg tablet 50 mg PO DAILY #90 tabs 11/22/18 [Rx Last Taken Unknown] acetaminophen 500 mg tablet 500 mg PO Q4H PRN PRN Pain Score 1-10/10 #20 tabs 02/21/20 [Rx Last Taken Unknown] ibuprofen 600 mg tablet 600 mg PO Q6H PRN PRN Pain Score 1-10/10 #20 tabs 02/21/20 [Rx Last Taken Unknown] amlodipine 10 mg tablet 5 mg PO QDAY 03/10/22 [History Last Taken Unknown] omeprazole 40 mg capsule,delayed release 1 cap PO DAILY 03/10/22 [History Last Taken Unknown] Allergy/AdvReac Type Severity Reaction Status Date / Time lisinopril AdvReac Mild cough Verified 03/10/22 11:26 Family History Mother , age [address] [place] CAD (coronary artery disease) Myocardial infarction Surgical History Esophageal dilatation H/O coronary artery bypass surgery (01/25/13) History of eye surgery History of lithotripsy (07/2018) Hx of cholecystectomy Social History Smoking Status: Never smoker alcohol intake: current alcohol intake frequency: a few times a week substance use type: does not use diet: low carbohydrate caffeine: Yes Type: coffee Number of servings: 2 what type of physical activity do you participate in: walking frequency: daily duration: 60-90 minutes/day do you feel safe at home: Yes ROS ROS ED Constitutional Constitutional ED: Denies chills or weight loss Eyes Eyes: Denies change in vision or diplopia ENT ENT ED: Denies ear pain, rhinorrhea or sore throat Cardiovascular Cardiovascular: Denies chest pain, orthopnea, palpitations or racing heartbeat Respiratory/Chest Respiratory/Chest: Denies cough, dyspnea or orthopnea Gastrointestinal Gastrointestinal: Denies abdominal pain, diarrhea, nausea or vomiting Genitourinary Genitourinary ED: Denies dysuria, hematuria or urinary frequency Musculoskeletal Musculoskeletal: Reports other Details: see HPI ; Denies arthralgias or myalgias Integumentary Denies abscess or rash Neurologic Neurologic: Denies headache(s) or weakness Psychiatric Psychiatric: Denies anxiety, depression, suicidal ideation or suicidal thoughts Endocrine Endocrinology: Denies polydipsia, polyphagia or polyuria Allergic/Immunologic Allergic/Immunologic ED: Denies mouth swelling, tongue swelling or urticaria EXAM Physical Exam Const Vital Signs: 03/10/22 11:26 Temperature 97.2 F L Temperature Source Temporal Pulse Rate 98 Respiratory Rate 14 Blood Pressure 174/84 H Blood Pressure Mean 114 Pulse Ox 98 Oxygen Delivery Method Room Air Positive well nourished and well developed General Appearance ED: well developed HEENT Reports normocephalic, head/scalp atraumatic and moist mucous membranes Eyes PERRL and EOMs intact bilaterally Neck full ROM, no lymphadenopathy, supple and no JVD Resp normal respiratory effort and clear to auscultation bilaterally Cardio regular rate, regular rhythm and no murmurs GI normal to inspection, nondistended, normoactive bowel sounds and non-tender Palpation: soft Back/Spine no CVA tenderness and normal ROM Extremity Extremity Narrative: There is no pain on palpation of the knee. There is no significant swelling. Ligaments appear stable. Extensor mechanism is intact. General Extremety ED: Negative for edema General Extremity: Negative for edema Neuro oriented x3 and CN's II-XII intact bilaterally Sensorium / Orientation: alert Motor Exam: strength 5/5 throughout Psych mental status grossly normal Mood & Affect: Negative for depressed or tearful Skin no rashes or lesions noted and no wounds MDM MDM MDM Narrative Medical decision making narrative: My interpretation of the plain films of the right knee is no acute fracture. Clinically the ligaments appear stable. We will treat this as a knee sprain follow-up with primary care 10 to 14 days if not improved return if worsening or concerns. Discharge Plan Triage Chief Complaint: Lower Extremity Injury ED Provider: Nick Hill Dx/Rx/DC Orders Clinical Impression: Right knee sprain, Acute pain of right knee Instructions: ED Knee Sprain Prescriptions: No Action aspirin [Adult Aspirin Regimen] 81 mg tablet,delayed release (DR/EC) 81 mg PO QDAY losartan 50 mg tablet 50 mg PO DAILY Qty: 90 3RF acetaminophen 500 MG tablet 500 mg PO Q4H PRN PRN (Reason: Pain Score 1-10/10) Qty: 20 0RF ibuprofen 600 MG tablet 600 mg PO Q6H PRN PRN (Reason: Pain Score 1-10/10) Qty: 20 0RF omeprazole 40 mg capsule,delayed release(DR/EC) 1 cap PO DAILY amlodipine 10 mg tablet 5 mg PO QDAY Primary Care Provider: Care Physician,No Primary Referrals: Xavier Fernandez MD [NON-STAFF] - 10-14 Days if not better Disposition Disposition: Home, Self Care
--- NOTE | 2022-03-10 12:00 | RAD_ITS ---
STUDY: X-RAY - RIGHT KNEE REASON FOR EXAM: Male, 72 years old. PER PATIENT NO KNOWN INJURY, RIGHT KNEE PAIN, HX FLUID REMOVAL TECHNIQUE: For view(s) of the knee. COMPARISON: None. FINDINGS: Normal visualized distal femur. Normal visualized proximal tibia and fibula. Normal proximal tibiofibular articulation. There is no demonstrated fracture. Normal medial femorotibial compartment. Normal lateral femorotibial compartment. Normal patellofemoral articulation. There is no demonstrated joint effusion. The soft tissue structures are unremarkable. RAD/Knee 4 or More Views IMPRESSION: Normal x-ray examination of the knee. Electronically Signed: Josh Kenney MD at 12:58 EDT Reading Location ID and State: [facility] / [place] , Service support ,
[2022-03-10 12:59] VITALS: RESP 18
== END 2022-03-10 13:02 | disposition home or self-care (01) ==
LOC: ED 11:53
PROVIDERS: Emergency Provider Emergency Medicine; Visit Provider Emergency Medicine
DX: S83.91XA Sprain of unspecified site of right knee, initial encounter (principal); I25.10 Atherosclerotic heart disease of native coronary artery without angina pectoris; E78.5 Hyperlipidemia, unspecified; I10 Essential (primary) hypertension; M25.561 Pain in right knee; X50.1XXA Overexertion from prolonged static or awkward postures, initial encounter; Z86.73 Personal history of transient ischemic attack (TIA), and cerebral infarction without residual deficits; Z95.1 Presence of aortocoronary bypass graft
CPT/HCPCS: 73564; 99282